=== PATIENT | male | born 1935 | race Caucasian/White ===

== ENCOUNTER 2023-08-03 08:56 | Outpatient (CLI) | payer MEDICARE, SELFPAY ==
[2023-08-03 13:41] LABS: Basophils Absolute Auto 0.1 K/mm3 (0.0-0.1); Basophils Percent Auto 0.6 % (0.2-1.2); Eosinophils Absolute Auto 0.1 K/mm3 (0-0.3); Eosinophils Percent Auto 1.8 % (0-4.4); Hematocrit 42.9 % (42.0-52.0); Hemoglobin 14.6 g/dL (14.0-18.0); Immature Granulocyte Absolute 0.02 K/mm3 (0.00-0.031); Immature Granulocyte Percent A 0.3 % (0-0.5); Lymphocytes Absolute Auto 1.21 K/mm3 (0.9-3.2); Lymphocytes Percent Auto 15.5 % (18.3-44.2); Mean Corpuscular Hemoglobin 35.3 pg (26-34); Mean Corpuscular Volume 103.6 fl (80-100); Mean Platelet Volume 10.2 fl (7.4-10.4); Monocytes Absolute Auto 1.2 K/mm3 (0.1-0.6); Monocytes Percent Auto 15.5 % (2.6-8.5); Neutrophils Absolute Auto 5.2 K/mm3 (1.3-6.7); Neutrophils Percent Auto 66.3 % (45.5-73.1); Platelet Count Result 321 k/mm3 (150-375); Red Blood Count 4.14 M/mm3 (4.6-6.20); Red Cell Distribution Width 12.9 % (11.5-14.5); White Blood Count 7.8 K/mm3 (4.5-10.0)
[2023-08-03 13:43] LABS: Appearance Urine Turbid (Clear); Bacteria Urine None Seen /hpf; Bilirubin Urine 1+ (Negative); Blood Urine Negative (Negative); Color Urine Dark Yellow (Yellow); Glucose Urine UA Negative (Negative); Ketones Urine 1+ mg/dL (Negative); Leukocyte Esterase Ur Trace LEU/UL (Negative); Nitrate Urine Negative (Negative); Non Pathogenic Casts 0-2; Protein Urine Trace mg/dL (Negative); RBC Urine 0-2 /hpf (0-2); Specific Grav Ur 1.027 (1.001-1.035); Squamous Epithelial Cell Urine None seen /hpf (Few); WBC Urine 0-5 /hpf; pH Urine 5.5 (5.0-9.0)
[2023-08-03 13:49] LABS: Add Urine Microscopic? YES
[2023-08-03 14:12] LABS: Alanine Aminotransferase 30 U/L (6-50); Albumin Level 3.9 g/dL (3.5-5.1); Alkaline Phosphatase 72 U/L (38-126); Anion Gap 8 mmol/L (8-16); Aspartate Amino Transferase 46 U/L (17-59); Bilirubin,Total 0.7 mg/dL (0.2-1.3); Blood Urea Nitrogen 13 mg/dL (9-20); Calcium 8.7 mg/dL (8.4-10.2); Carbon Dioxide 29 mmol/L (22-30); Chloride 101 mmol/L (98-107); Cholesterol 117 mg/dL (0-200); Estimated Glomerular Filt Rate > 60; Glucose 99 mg/dL (65-110); HDL Direct 46 mg/dL; Potassium 3.8 mmol/L (3.4-5.0); Sodium 138 mmol/L (137-145); Triglycerides 53 mg/dL (<150)
[2023-08-03 14:24] LABS: LDL Cholesterol Direct 61 mg/dL
== END 2023-08-03 08:57 | disposition home or self-care (01) ==
LOC: ANHGOSHLAB 08:58
PROVIDERS: PCP Internal Medicine; Visit Provider Nurse Practitioner
DX: R53.83 Other fatigue (principal); I48.91 Unspecified atrial fibrillation; I10 Essential (primary) hypertension; R11.10 Vomiting, unspecified; Z13.220 Encounter for screening for lipoid disorders
CPT/HCPCS: 36415; 80053; 80061; 81001; 84443; 85025

== ENCOUNTER 2023-09-18 15:50 | Emergency (ER) | payer MEDICARE, SELFPAY ==
[2023-09-18] VITALS (7 sets, daily range): BP systolic 135–180; BP diastolic 69–83; PULSE 86–103; RESP 14–19; TEMP 36.3; O2SAT 97–100
--- NOTE | ~2023-09-18 | CT_ITS ---
EXAMINATION: CT abdomen pelvis w con DATE: 09/18/2023 17:57 INDICATION: N/V/D x 2 weeks TECHNIQUE: Computed tomography (CT) of the abdomen and pelvis was performed with 100 mL Omnipaque-350 intravenous contrast. Automated exposure control and iterative reconstruction technique were employe d. The dose-length product was 330.41 mGy-cm. COMPARISON: None. FINDINGS: Lower thorax: Coronary artery, aortic valve, and mitral calcification. Granulomatous calcifications i n the lungs. Liver: Borderline low-density parenchyma. Granulomatous calcifications. Biliary/Gallbladder: Gallbladder is collapsed. No bile duct dilation. Pancreas: No mass or duct dilation. Spleen: Granulomatous calcifications. Adrenals:No mass. Kidneys: No suspicious mass, obstructing stone, or hydronephrosis. Simple right upper pole cyst. Mult iple right renal subcentimeter hypodensities that are too small to characterize but also likely repre sent cysts. GI tract: Small hiatal hernia. Distal esophageal and gastric wall edema. Fluid-filled colon. No small or large bowel dilation. The appendix is not confidently visualized. Diverticulosis without divertic ulitis. Mesentery/Peritoneum: Upper abdominal mesenteric stranding with fat halos surrounding multiple promin ent lymph nodes. Retroperitoneum: No mass. Atherosclerotic abdominal aortic and/or arterial calcifications. Pelvis: Normal urinary bladder. Prostatomegaly. Soft Tissues: Soft tissues and body wall unremarkable. Bones: No acute osseous finding. Severe central canal narrowing at L3-4 secondary to degenerative ch anges. IMPRESSION: Mild esophagitis/gastritis. Mesenteric panniculitis. Fluid-filled colon, as can be seen with diarrheal illness. Reviewed, dictated and finalized at location K.
[2023-09-18 16:57] LABS: Basophils Percent Auto 0.6 % (0.2-1.2); Eosinophils Absolute Auto 0.1 K/mm3 (0-0.3); Hematocrit 46.7 % (42.0-52.0); Hemoglobin 15.9 g/dL (14.0-18.0); Immature Granulocyte Absolute 0.02 K/mm3 (0.00-0.031); Immature Granulocyte Percent A 0.3 % (0-0.5); Lymphocytes Absolute Auto 1.81 K/mm3 (0.9-3.2); Lymphocytes Percent Auto 25.9 % (18.3-44.2); Mean Corpuscular Hemoglobin 33.8 pg (26-34); Mean Corpuscular Volume 99.4 fl (80-100); Mean Platelet Volume 9.6 fl (7.4-10.4); Monocytes Absolute Auto 0.8 K/mm3 (0.1-0.6); Monocytes Percent Auto 11.9 % (2.6-8.5); Neutrophils Absolute Auto 4.2 K/mm3 (1.3-6.7); Neutrophils Percent Auto 59.3 % (45.5-73.1); Platelet Count Result 284 k/mm3 (150-375); Red Cell Distribution Width 12.5 % (11.5-14.5)
[2023-09-18 17:05] LABS: INR 1.1; Prothrombin Time 14.6 Seconds (11.1-14.7)
[2023-09-18 17:06] LABS: Partial Thromboplastin Time 28.2 SECONDS (22.3-36.8)
[2023-09-18 17:07] LABS: Alanine Aminotransferase 30 U/L (6-50); Albumin Level 4.4 g/dL (3.5-5.1); Alkaline Phosphatase 63 U/L (38-126); Anion Gap 10 mmol/L (8-16); Aspartate Amino Transferase 47 U/L (17-59); Bilirubin,Total 0.9 mg/dL (0.2-1.3); Blood Urea Nitrogen 15 mg/dL (9-20); Calcium 9.1 mg/dL (8.4-10.2); Carbon Dioxide 22 mmol/L (22-30); Chloride 109 mmol/L (98-107); Estimated CRCL calculation 53 ml/min; Estimated Glomerular Filt Rate > 60; Glucose 108 mg/dL (65-110); Potassium 3.3 mmol/L (3.4-5.0); Sodium 141 mmol/L (137-145)
--- NOTE | 2023-09-18 17:48 | ED.GENADULT ---
[facility] - General Adult General Chief complaint: GI Bleed Stated complaint: blood in stool Time Seen by Provider: 09/18/23 17:00 Source: patient Mode of arrival: ambulatory Limitations: no limitations History of Present Illness HPI narrative: This is an 88-year-old male with PMH of paroxysmal AFib, GERD, HTN who presents to the ED with chief complaint of N/V/D x2 weeks and an episode of GI bleed today. Reports that he has had multiple bouts of diarrhea almost every day for the past couple of weeks. He reports today there was some bright red blood in the stools. When he had another bowel movement here in the ED he states that this bleeding had resolved. Denies melena or hematemesis. Denies fevers, chills, abdominal pain, chest pain, shortness of breath, urinary problems. Denies lightheadedness, syncope. Related Data Home Medications Medication Instructions Recorded Confirmed mv-mn-folic 200 mcg-vit K 15 cap PO 08/03/23 09/05/23 mcg-lutein 5 mg-zeaxanthin 1 mg capsule (PreserVision AREDS 2 Plus Multivit) Allergies Allergy/AdvReac Type Severity Reaction Status Date / Time No Known Allergies Allergy Verified 09/18/23 16:43 Review of Systems Review of Systems: All systems as dictated in [facility] Past Medical History Medical History Afib Dementia GERD (gastroesophageal reflux disease) Hypertension Social History Social History Smoking status: Never smoker Alcohol intake: current Alcohol use details: 3 glasses of wine Substance use type: does not use Lack of Transportation: No Lack of Food: Never True Current Housing: I Have Housing Concerned About Future Housing: No Difficulty Paying Gas/Electric Bills: No Difficulty Paying for Meds: No Currently Unemployed: No Education: High School Diploma/GED Difficulty w/ Childcare or Family Care: No Exam Narrative: GENERAL: Well-appearing, well-nourished, and in no acute distress. HEAD: Normocephalic, atraumatic. EYES: PERRLA and EOMI. ENT: Nares clear, no rhinorrhea or epistaxis. Mucous membranes moist. Oropharynx without tonsillar hypertrophy exudate or other lesions. NECK: Supple. No adenopathy or masses. CHEST: No respiratory distress. Clear to auscultation. No wheezes rales or rhonchi HEART: Regular rate and rhythm. No murmur heard. Normal peripheral pulses. ABDOMEN: Soft, nontender, nondistended, normal active bowel sounds. MSK: Normal range of motion. No edema. SKIN: Warm, dry, no rash. NEURO: Alert and oriented x3. No focal deficits. PSYCH: Normal mood and affect. Course Vital Signs Vital signs: Vital Signs Temperature 97.3 F L 09/18/23 16:07 Pulse Rate 94 09/18/23 16:07 Respiratory Rate 16 09/18/23 16:07 Blood Pressure 150/70 H 09/18/23 16:07 Pulse Oximetry 97 09/18/23 16:07 Oxygen Delivery Room Air 09/18/23 16:07 Temperature 97.3 F L 09/18/23 16:07 Pulse Rate 94 09/18/23 19:19 Respiratory Rate 19 09/18/23 19:19 Blood Pressure 135/71 09/18/23 19:19 Pulse Oximetry 98 09/18/23 19:19 Oxygen Delivery Room Air 09/18/23 16:07 Medical Decision Making MDM Narrative Medical decision making narrative: This is a 88-year-old male who presents to the ED with chief complaint of N/V/D as well as 1 episode of bright red blood in the stool. Vitals are normal. Exam is benign. No evidence of acute abdomen. Lab work shows normal CBC and CMP. Potassium very slightly low at 3.3. CT abdomen and pelvis with IV contrast: Mild esophagitis/gastritis. Mesenteric panniculitis. Fluid-filled colon as can be seen with viral illness. Patient has no recent antibiotic course or hospital stay to suggest severe diarrheal illness such as C diff. symptoms are consistent with gastroenteritis. He is currently asymptomatic and feels comfortable going home. Pt will be discharge
--- NOTE | 2023-09-18 19:10 | PC.NURSE ---
Bedside report given to Nina RN, all questions answered
== END 2023-09-18 19:21 | disposition home or self-care (01) ==
PROVIDERS: Emergency Medicine; Emergency Provider Physician Assistant; PCP Internal Medicine
DX: R19.7 Diarrhea, unspecified (principal); F03.90 Unspecified dementia, unspecified severity, without behavioral disturbance, psychotic disturbance, mood disturbance, and anxiety; I48.0 Paroxysmal atrial fibrillation; I10 Essential (primary) hypertension; K21.9 Gastro-esophageal reflux disease without esophagitis; Z79.01 Long term (current) use of anticoagulants
CPT/HCPCS: 36415; 74177; 80053; 85025; 85610; 85730; 86850; 86900; 86901; 99284; Q9967

== ENCOUNTER 2023-11-14 09:33 | Observation (INO) | payer MEDICARE, SELFPAY ==
[2023-11-14] VITALS (7 sets, daily range): BP systolic 134–152; BP diastolic 59–67; PULSE 65–98; RESP 15–20; TEMP 36.1–36.8; O2SAT 96–100
--- NOTE | ~2023-11-14 | CT_ITS ---
EXAMINATION: CT abdomen pelvis w con DATE: 11/14/2023 12:37 INDICATION: Hematemesis. TECHNIQUE: Computed tomography (CT) of the abdomen and pelvis was performed with 100 mL Omnipaque 350 intravenous contrast. Automated exposure control and iterative reconstruction technique were employe d. The dose-length product was 332.63 mGy-cm. COMPARISON: CT abdomen and pelvis 09/18/2023 FINDINGS: The visualized portions of the lung bases demonstrate minimal atelectasis. A calcified righ t lung nodules consistent with old granulomatous disease. No pleural effusion. The heart size is norm al. There are coronary artery calcifications. No pericardial effusion. There is a small sliding hiata l hernia. Calcifications in the liver and spleen are consistent with old granulomatous disease. There is diffuse hepatic steatosis. The gallbladder, pancreas, and adrenal glands are normal. There are cy sts in the kidneys measuring up to 17 mm on the right. The prostate is mildly enlarged. There is a le ft inguinal hernia containing fat. There is diverticulosis of the colon without evidence of diverticu litis. The appendix is normal. There are no pathologically enlarged lymph nodes. There is no free int raperitoneal fluid. There is chronic fat stranding in the small bowel mesentery. There is severe lumb ar spondylosis. There is moderate thoracic spondylosis. IMPRESSION: 1. Small sliding hiatal hernia. Reviewed, dictated and finalized at location A.
[2023-11-14 09:54] LABS: Basophils Percent Auto 0.4 % (0.2-1.2); Eosinophils Absolute Auto 0.1 K/mm3 (0-0.3); Eosinophils Percent Auto 1.9 % (0-4.4); Hematocrit 46.1 % (42.0-52.0); Hemoglobin 15.5 g/dL (14.0-18.0); Immature Granulocyte Absolute 0.01 K/mm3 (0.00-0.031); Immature Granulocyte Percent A 0.2 % (0-0.5); Lymphocytes Absolute Auto 1.08 K/mm3 (0.9-3.2); Lymphocytes Percent Auto 22.3 % (18.3-44.2); Mean Corpuscular HGB Conc 33.6 g/dl (32-36); Mean Corpuscular Volume 101.1 fl (80-100); Mean Platelet Volume 9.6 fl (7.4-10.4); Monocytes Absolute Auto 0.6 K/mm3 (0.1-0.6); Monocytes Percent Auto 12.4 % (2.6-8.5); Neutrophils Absolute Auto 3.1 K/mm3 (1.3-6.7); Neutrophils Percent Auto 62.8 % (45.5-73.1); Platelet Count Result 233 k/mm3 (150-375); Red Blood Count 4.56 M/mm3 (4.6-6.20); Red Cell Distribution Width 13.1 % (11.5-14.5); White Blood Count 4.9 K/mm3 (4.5-10.0)
[2023-11-14 10:05] LABS: Alanine Aminotransferase 29 U/L (6-50); Albumin Level 4.7 g/dL (3.5-5.1); Alkaline Phosphatase 78 U/L (38-126); Anion Gap 14 mmol/L (4-12); Aspartate Amino Transferase 42 U/L (17-59); Bilirubin,Total 1.2 mg/dL (0.2-1.3); Blood Urea Nitrogen 11 mg/dL (9-20); Calcium 9.3 mg/dL (8.4-10.2); Carbon Dioxide 19 mmol/L (22-30); Chloride 107 mmol/L (98-107); Estimated CRCL calculation 55 ml/min; Estimated Glomerular Filt Rate > 60; Glucose 87 mg/dL (65-110); Partial Thromboplastin Time 26.2 Seconds (22.3-36.8); Prothrombin Time 13.7 Seconds (11.1-14.7); Sodium 140 mmol/L (137-145)
--- NOTE | 2023-11-14 12:08 | ED.GENADULT ---
HPI - General Adult General Chief complaint: GI Bleed Stated complaint: vomiting blood Time Seen by Provider: 11/14/23 11:28 History of Present Illness HPI narrative: 88-year-old male present to the emergency department for evaluation hematemesis. Patient states he has had 2 days of persistent nausea and vomiting but today had an episode of hematemesis. Patient denies any associated abdominal pain. Patient states he does have history of esophageal stricture and was previously dilated in [place] where he used to live. Patient states he has had worsening issues with swallowing but describes acute worsening of nausea and vomiting over the last few days. Patient denies any dark tarry stools or blood in his stool. Related Data Home Medications Medication Instructions Recorded Confirmed apixaban 5 mg tablet (Eliquis) 2.5 mg PO BID 11/14/23 11/14/23 prednisolone sodium phosphate 1 % 1 drp EACH EYE Q12H 11/14/23 11/14/23 eye drops vitamin A-vitamin C-vit E-min 1 tablet PO DAILY 11/14/23 11/14/23 tablet Allergies Allergy/AdvReac Type Severity Reaction Status Date / Time No Known Allergies Allergy Verified 09/26/23 14:00 Review of Systems Review of Systems: All systems reviewed & are unremarkable except as noted in HPI and below PMFSH Past Medical History Medical History (Updated 11/14/23 @ 18:48 by Socorro Moralez PA-C) Chronic anticoagulation Dementia Gastroesophageal reflux disease Hypertension Paroxysmal atrial fibrillation Surgical History Surgical History (Updated 11/14/23 @ 18:47 by Socorro Moralez PA-C) History of cataract extraction History of esophageal dilatation History of tonsillectomy Family History Family History Father Acute myocardial infarction Mother Acute myocardial infarction Social History Social History (Updated 11/14/23 @ 18:47 by Socorro Moralez PA-C) Social History: Surrogate medical decision maker: Randall Mclean, son. Code status: Full code. Smoking status: Never smoker Second hand tobacco smoke exposure: No Alcohol intake: current Drinks per week: 2 Alcohol use details: 3 glasses of wine Substance use: never Substance use type: does not use Do You Feel Safe in your Home?: Yes Lack of Transportation: No Lack of Food: Never True Current Housing: I Have Housing Concerned About Future Housing: No Difficulty Paying Gas/Electric Bills: No Difficulty Paying for Meds: No Currently Unemployed: No Education: High School Diploma/GED Difficulty w/ Childcare or Family Care: No Spiritual care concerns: No Exam Narrative: APPEARANCE: Well appearing, no pain, no distress, well-nourished. HEAD: normocephalic, atraumatic. EYES: PERRLA/EOMI, conjunctivae clear. NOSE: Normal no drainage EARS:TMS clear with good light reflex. THROAT: Pharynx clear, no exudate. NECK: Supple. No adenopathy, no masses. RESPIRATORY: Airway patent, respirations nonlabored. Clear to auscultation bilaterally, no rales, rhonchi, wheezing. CARDIOVASCULAR: Regular rate and rhythm without murmurs rubs or gallops. ABDOMINAL: Soft, nontender, nondistended, normal bowel sounds MUSCULOSKELETAL: Moves all extremities. Strength/ROM intact, No edema, No calf tenderness. NEURO: Alert. Cranial nerves II through XII intact. Grossly intact SKIN: Warm, dry. Normal Color Rectal exam: Hemoccult negative on digital rectal exam, no stool in the rectal vault Course Course Emergency Course: Patient was admitted to the hospitalist and GI was consulted. Vital Signs Vital signs: Vital Signs Temperature 97.0 F L 11/14/23 09:36 Pulse Rate 98 11/14/23 09:36 Respiratory Rate 18 11/14/23 09:36 Blood Pressure 151/67 H 11/14/23 09:36 Pulse Oximetry 96 11/14/23 09:36 Oxygen Delivery Room Air 11/14/23 09:36 Temperature 97.0 F L 11/14/23 09:36 Pulse Rate 85 11/14/23 16:07 Respirato
[2023-11-14] MEDS: PANTOPRAZOLE SODIUM IV 40 MG VIAL IV PUSH (12:18)
[2023-11-14] MEDS: PANTOPRAZOLE SODIUM IV 80 MG in SODIUM CHLORIDE 0.9% IV 500 ML 50 MG IV CONT (12:37)
--- NOTE | 2023-11-14 14:45 | ADMGEN ---
This patient, Kobe Mclean, was admitted to Medical Room 244-. Patient/family oriented to hospital policies and general routines including ID bracelet, bed and alarms, visiting hours, pain management, procedures, bathroom and other care routines, personal items, smoking policy, room service/diet, and visiting hours. Information on how to activate the Rapid Response Team has been discussed. Patient/Family are encouraged to report perceived risks to care and to ask questions if they do not understand what they are told or what they should do.
--- NOTE | 2023-11-14 18:40 | PM.IMHP ---
H&P: HPI History of Present Illness Date/Time: 11/14/23 19:00 Chief Complaint: Difficulty swallowing and blood in vomit. Narrative: This is a very pleasant 88-year-old male with history of esophageal stricture requiring dilatation, gastroesophageal reflux disease, paroxysmal atrial fibrillation on chronic anticoagulation, and hypertension who presented to the emergency department via private vehicle for evaluation of difficulty swallowing and blood in vomit. The patient provides the following history. Over the last week or so he started having issues with swallowing liquids and solids similar to when he required esophageal dilation previously. This morning he had coffee and a couple of yogurt for breakfast and not long thereafter he vomited up when he had just eaten. He apparently told his that he had blood in the vomitus however he does not seem to remember that and denies that at this time. expresses concern that he has lost approximately 10 to 12 lb in less than a year's time. He tells me he just does not eat as much as he used to. He denies epigastric and abdominal pain, bloating, belching, indigestion, melena, and hematochezia. He also denies choking and concerns for aspiration. No significant alcohol or caffeine use and he denies NSAID use. In the ED: Vital signs were stable on arrival. Labs were significant for a WBC count of 4.9, hemoglobin 15.5, BUN 11, creatinine 0.80, INR 1.0. CT of the abdomen and pelvis showed a small sliding hiatal hernia. He received 40 mg IV pantoprazole and is being admitted in this setting for further monitoring and GI consultation. Review of Systems Review of Systems: 12 systems were reviewed and are negative except for as per HPI. [facility] Past Medical History Medical History (Updated 11/14/23 @ 18:48 by Socorro Moralez PA-C) Chronic anticoagulation Dementia Gastroesophageal reflux disease Hypertension Paroxysmal atrial fibrillation Surgical History Surgical History (Updated 11/14/23 @ 18:47 by Socorro Moralez PA-C) History of cataract extraction History of esophageal dilatation History of tonsillectomy Family History Family History Father Acute myocardial infarction Mother Acute myocardial infarction Social History Social History (Updated 11/14/23 @ 18:47 by Socorro Moralez PA-C) Social History: Surrogate medical decision maker: Randall Mclean, son. Code status: Full code. Smoking status: Never smoker Second hand tobacco smoke exposure: No Alcohol intake: current Drinks per week: 2 Alcohol use details: 3 glasses of wine Substance use: never Substance use type: does not use Do You Feel Safe in your Home?: Yes Lack of Transportation: No Lack of Food: Never True Current Housing: I Have Housing Concerned About Future Housing: No Difficulty Paying Gas/Electric Bills: No Difficulty Paying for Meds: No Currently Unemployed: No Education: High School Diploma/GED Difficulty w/ Childcare or Family Care: No Spiritual care concerns: No Meds Home Medications and Allergies Home Medications Medication Instructions Recorded Confirmed Type amlodipine 2.5 mg tablet 2.5 mg PO BID #180 tabs 04/10/23 11/14/23 Rx atenolol 50 mg tablet 50 mg PO DAILY #90 tabs 06/26/23 11/14/23 Rx apixaban 5 mg tablet (Eliquis) 2.5 mg PO BID 11/14/23 11/14/23 History prednisolone sodium phosphate 1 % 1 drp EACH EYE Q12H 11/14/23 11/14/23 History eye drops vitamin A-vitamin C-vit E-min 1 tablet PO DAILY 11/14/23 11/14/23 History tablet Allergies Allergy/AdvReac Type Severity Reaction Status Date / Time No Known Allergies Allergy Verified 09/26/23 14:00 Vital Signs Vital Signs - 24 hr 11/14/23 09:36 11/14/23 11:10 11/14/23 12:40 Temperature 97.0 F L Pulse Rate 98 80 84 Respiratory Rate 18 18 16 Blood Pressure 151/67 H 149/67 H 135/64 Pulse Oximetry 96 100 99
[2023-11-14] MEDS: amLODIPine BESYLATE 2.5 MG TABLET PO (20:11)
[2023-11-14] MEDS: prednisoLONE ACETATE 1% OPHTH 5 ML 1 DROP EACH EYE (20:12)
[2023-11-14 21:23] LABS: Hematocrit 41.4 % (42.0-52.0); Hemoglobin 14.4 g/dL (14.0-18.0)
[2023-11-15] VITALS (7 sets, daily range): BP systolic 127–149; BP diastolic 57–76; PULSE 67–95; RESP 17–21; TEMP 36.4–36.8; O2SAT 70–100; BMI 20.5
[2023-11-15 05:18] LABS: Hematocrit 42.1 % (42.0-52.0); Hemoglobin 14.1 g/dL (14.0-18.0); Mean Corpuscular HGB Conc 33.5 g/dl (32-36); Mean Corpuscular Hemoglobin 34.1 pg (26-34); Mean Corpuscular Volume 101.9 fl (80-100); Mean Platelet Volume 9.5 fl (7.4-10.4); Platelet Count Result 194 k/mm3 (150-375); Red Blood Count 4.13 M/mm3 (4.6-6.20); Red Cell Distribution Width 12.9 % (11.5-14.5)
[2023-11-15 05:38] LABS: Anion Gap 10 mmol/L (4-12); Blood Urea Nitrogen 10 mg/dL (9-20); Calcium 8.9 mg/dL (8.4-10.2); Carbon Dioxide 23 mmol/L (22-30); Chloride 106 mmol/L (98-107); Estimated CRCL calculation 49 ml/min; Estimated Glomerular Filt Rate > 60; Glucose 73 mg/dL (65-110); Magnesium 2.1 mg/dL (1.6-2.3); Potassium 4.1 mmol/L (3.4-5.0); Sodium 139 mmol/L (137-145)
[2023-11-15] MEDS: prednisoLONE ACETATE 1% OPHTH 5 ML 1 DROP EACH EYE (08:16)
[2023-11-15] MEDS: PANTOPRAZOLE SODIUM IV 40 MG VIAL IV PUSH (08:16)
--- NOTE | 2023-11-15 09:53 | PHAR ---
Pharmacy verified home med: * Use from home * Prednisolone Sod Phos/Moxifloxacin/Bromfenac 1/0.5/0.075% Opth Soln instill 1 drop in each eye every 12 hours
--- NOTE | 2023-11-15 13:10 | PC.NURSE ---
To GI Lab via wheelchair, IV R forearm saline locked. Report given to Hipolito LAURA.
[2023-11-15] MEDS: LACTATED RINGERS 1,000 ML 150 ML IV CONT (13:25)
--- NOTE | 2023-11-15 14:02 | WPDANESEPPF ---
Anes - Initial Pre Proc Eval Procedure: Operation Date: 11/15/23 14:30 Proposed Procedures p Esophagogastroduodenoscopy - Amador Soto MD Date/Time: 11/15/23 14:02 Surgeon: Baljeet Juarez MD Pre Op Diagnosis: Nausea/Vomiting/Hematemesis Patient Data Age: 88 Gender: M Height: 1.8 m Weight: 66.8 kg Last Vital Signs Temp 97.5 F L 11/15/23 13:19 Pulse 81 11/15/23 13:19 Resp 20 11/15/23 13:19 BP 149/67 H 11/15/23 13:19 Pulse Ox 94 11/15/23 13:19 O2 Del Method Room Air 11/15/23 13:19 Allergies Allergy/AdvReac Type Severity Reaction Status Date / Time No Known Allergies Allergy Verified 11/15/23 13:17 Home Medications Medication Instructions Recorded Confirmed Type amlodipine 2.5 mg tablet 2.5 mg PO BID #180 tabs 04/10/23 11/14/23 Rx atenolol 50 mg tablet 50 mg PO DAILY #90 tabs 06/26/23 11/14/23 Rx apixaban 5 mg tablet (Eliquis) 2.5 mg PO BID 11/14/23 11/14/23 History prednisolone sodium phosphate 1 % 1 drp EACH EYE Q12H 11/14/23 11/14/23 History eye drops vitamin A-vitamin C-vit E-min 1 tablet PO DAILY 11/14/23 11/14/23 History tablet Laboratory Tests 11/14/23 11/15/23 21:04 04:44 WBC 5.0 K/mm3 (4.5-10.0) RBC 4.13 L M/mm3 (4.6-6.20) Hgb 14.4 g/dL 14.1 g/dL (14.0-18.0) (14.0-18.0) Hct 41.4 L % 42.1 % (42.0-52.0) (42.0-52.0) MCV 101.9 H fl (80-100) MCH 34.1 H pg (26-34) MCHC 33.5 g/dl (32-36) RDW 12.9 % (11.5-14.5) Plt Count 194 k/mm3 (150-375) MPV 9.5 fl (7.4-10.4) Sodium 139 mmol/L (137-145) Potassium 4.1 mmol/L (3.4-5.0) Chloride 106 mmol/L (98-107) Carbon Dioxide 23 mmol/L (22-30) Anion Gap 10 mmol/L (4-12) BUN 10 mg/dL (9-20) Creatinine 0.90 mg/dL (0.7-1.3) Estim Creat Clear Calc 49 ml/min Estimated GFR > 60 (59 - ) Glucose 73 mg/dL (65-110) Calcium 8.9 mg/dL (8.4-10.2) Magnesium 2.1 mg/dL (1.6-2.3) Patient hx anesthesia problems: none Family hx anesthesia problems: none Results Review: All pre-operative results and documents have been reviewed as part of the pre-operative evaluation. PENDING SALE TO [facility] Past Medical History Medical History (Updated 11/14/23 @ 18:48 by Socorro Moralez PA-C) Chronic anticoagulation Dementia Gastroesophageal reflux disease Hypertension Paroxysmal atrial fibrillation Surgical History Surgical History (Updated 11/14/23 @ 18:47 by Socorro Moralez PA-C) History of cataract extraction History of esophageal dilatation History of tonsillectomy Family History Family History Father Acute myocardial infarction Mother Acute myocardial infarction Social History Social History (Updated 11/14/23 @ 18:47 by Socorro Moralez PA-C) Social History: Surrogate medical decision maker: Randall Mclean, zuleyka. Code status: Full code. Smoking status: Never smoker Second hand tobacco smoke exposure: No Alcohol intake: current Drinks per week: 2 Alcohol use details: 3 glasses of wine Substance use: never Substance use type: does not use Do You Feel Safe in your Home?: Yes Lack of Transportation: No Lack of Food: Never True Current Housing: I Have Housing Concerned About Future Housing: No Difficulty Paying Gas/Electric Bills: No Difficulty Paying for Meds: No Currently Unemployed: No Education: High School Diploma/GED Difficulty w/ Childcare or Family Care: No Spiritual care concerns: No Anes - Eval Final PreProcedure Day of Procedure 11/15/23 14:02 Patient weight: normal Heart: regular rate and rhythm Lungs: clear to auscultation Airway: Mallampati scale Neurological: alert and oriented Last oral intake: >/= 8 hours ASA classification: III Emergent: no Anesthetic plan: proceed Anesthesia type and monit
--- NOTE | 2023-11-15 14:04 | WPDGICN ---
Assessment and Plan Assessment and plan (1) Dysphagia: Code(s): R13.10 - Dysphagia, unspecified Status: Acute Assessment and Plan: will proceed with urgent EGD given presentation of worsening dysphagia, also patient says that had blood in emesis hold eliquis in preparation for egd will assess if needs dilatation (2) Hematemesis: Code(s): K92.0 - Hematemesis Status: Acute Assessment and Plan: egd iv protonix ? esophagitis, ulcer, etc more recommendations after egd (3) Nausea & vomiting: Code(s): R11.2 - Nausea with vomiting, unspecified Status: Acute (4) Gastroesophageal reflux disease: Code(s): K21.9 - Gastro-esophageal reflux disease without esophagitis Status: Acute (5) Paroxysmal atrial fibrillation: Code(s): I48.0 - Paroxysmal atrial fibrillation Status: Acute (6) Chronic anticoagulation: Code(s): Z79.01 - buttermaker continuous churn (current) use of anticoagulants Status: Acute Assessment and Plan: on hold for now (7) Weight loss: Code(s): R63.4 - Abnormal weight loss Status: Acute GI Consult Note Consult date/time: 11/15/23 14:04 Reason for consult: hematemesis, dysphagia HPI: Kobe Mclean is a 88 year old male with history of esophageal stricture requiring dilatation last EGD about 10 years ago, gastroesophageal reflux disease, paroxysmal atrial fibrillation on chronic anticoagulation with eliquis, and hypertension who presented to the emergency department via private vehicle for evaluation of difficulty swallowing and hematemesis. He has been dealing with discomfort after swallowing for several months but last week worsened, then noted one episode of blood in emesis, also noted that he has lost approximately 10 to 12 lb in less than a year's time. He denies NSAID use. ER evaluation showed WBC count of 4.9, hemoglobin 15.5, BUN 11, creatinine 0.80, INR 1.0. CT of the abdomen and pelvis showed a small sliding hiatal hernia. Review of Systems Constitutional: Constitutional: Denies headache(s) and Denies weakness Eyes: Eyes: Denies blurry vision ENT: Reports Normal hearing present, Denies headache(s) and Denies neck pain Cardiovascular: Cardiovascular: Denies chest pain and Denies dyspnea Respiratory: Respiratory: Denies cough Gastrointestinal: Gastrointestinal: Reports heartburn and Reports hematemesis Genitourinary: Genitourinary: Denies dysuria Musculoskeletal: Musculoskeletal: Denies neck pain Integumentary/Breasts: Skin/Breast: Denies dry skin Neurologic: Reports Normal hearing present, Denies headache(s) and Denies weakness Psychiatric: Psychiatric: Denies anxiety Endocrine: Endocrine: Denies change in body appearance Hematologic/Lymphatic: Hematologic/Lymphatic: Denies easy bleeding Allergic/Immunologic: Allergic/Immunologic: Denies urticaria PMFSH Past Medical History Medical History (Updated 11/15/23 @ 14:09 by Amador Soto MD) Chronic anticoagulation Dementia Gastroesophageal reflux disease Hypertension Paroxysmal atrial fibrillation Weight loss Surgical History Surgical History (Updated 11/14/23 @ 18:47 by Socorro Moralez PA-C) History of cataract extraction History of esophageal dilatation History of tonsillectomy Family History Family History Father Acute myocardial infarction Mother Acute myocardial infarction Social History Social History (Updated 11/14/23 @ 18:47 by Socorro Moralez PA-C) Social History: Surrogate medical decision maker: Randall Mclean, son. Code status: Full code. Smoking status: Never smoker Second hand tobacco smoke exposure: No Alcohol intake: current Drinks per week: 2 Alcohol use details: 3 glasses of wine Substance use: never Substance use type: does not use Do You Feel Safe in your Home?: Yes Lack of Transportation: No [place]
--- NOTE | 2023-11-15 15:46 | PM.DS ---
DS: Admitting Diagnosis Discharge Date 11/15/23 Admitting Diagnosis hematemesis DS: Discharge Diagnosis Discharge Diagnosis (1) Dysphagia: Code(s): R13.10 - Dysphagia, unspecified Status: Acute (2) Hematemesis: Code(s): K92.0 - Hematemesis Status: Acute (3) Paroxysmal atrial fibrillation: Code(s): I48.0 - Paroxysmal atrial fibrillation Status: Acute (4) Chronic anticoagulation: Code(s): Z79.01 - MCFP (current) use of anticoagulants Status: Acute (5) Gastroesophageal reflux disease: Code(s): K21.9 - Gastro-esophageal reflux disease without esophagitis Status: Acute (6) Hypertension: Qualifiers: Hypertension type: primary hypertension Qualified Code(s): I10 - Essential (primary) hypertension Code(s): I10 - Essential (primary) hypertension Status: Acute DS: Summary Hospital Course Hospital Course: This is a very pleasant 88-year-old male with history of esophageal stricture requiring dilatation, gastroesophageal reflux disease, paroxysmal atrial fibrillation on chronic anticoagulation, and hypertension who presented to the emergency department via private vehicle for evaluation of difficulty swallowing and blood in vomit. Over the last week or so he started having issues with swallowing liquids and solids similar to when he required esophageal dilation previously. This morning he had coffee and a couple of yogurt for breakfast and not long thereafter he vomited up when he had just eaten. He apparently told his that he had blood in the vomitus however he does not seem to remember that and denies that at this time. expresses concern that he has lost approximately 10 to 12 lb in less than a year's time. In the ED: Vital signs were stable on arrival. Labs were significant for a WBC count of 4.9, hemoglobin 15.5, BUN 11, creatinine 0.80, INR 1.0. CT of the abdomen and pelvis showed a small sliding hiatal hernia. He received 40 mg IV pantoprazole and GI consultation.Patient underwent EGD on 11/15/2023 where he was discovered to have a Jesi-Barnhart tear, esophagitis, hiatal hernia and an esophageal ring. Is advised that he start on Protonix twice a day as well as Carafate with meals. Avoid NSAIDs. Hold Eliquis for 5 days and repeat EGD in 4 weeks to reassess. He will be discharged home on these medications. He is no longer experiencing any nausea or vomiting. Time Spent with Patient Time attestation: Total time spent providing and/or coordinating discharge services: Exam Narrative: GENERAL: Comfortable, no acute distress HENMT: moist mucous membranes EYES: EOM intact b/l NECK: no lymphadenopathy RESPIRATORY: clear to auscultation, no increased respiratory effort CARDIO: Regular rate and rhythm GI: soft, nontender, bowel sounds present SKIN/EXTREMITIES: no rashes, no edema, no redness or tenderness NEURO: PROM intact, answers questions appropriately, A&O x4 DS: Data Data Completed and Pending Pending studies at discharge: Pending at discharge 11/15/23 14:41 Surgical [PTH] Routine Labs on day of discharge: Labs from last 24 hours 11/15/23 11/14/23 04:44 21:04 WBC 5.0 RBC 4.13 L Hgb 14.1 14.4 Hct 42.1 41.4 L MCV 101.9 H MCH 34.1 H MCHC 33.5 RDW 12.9 Plt Count 194 MPV 9.5 Sodium 139 Potassium 4.1 Chloride 106 Carbon Dioxide 23 Anion Gap 10 BUN 10 Creatinine 0.90 Estim Creat Clear Calc 49 Estimated GFR > 60 Glucose 73 Calcium 8.9 Magnesium 2.1 Discharge Plan Discharge Consulting providers: Amador Soto Discharging Clinician: Darleen Souza Patient Disposition: Home, Self-Care Activity: no preference Diet: heart healthy Discharge Instructions: GI RECOMMENDATIONS The office will call you with results. If you Haven't heard from us within [address] Soto office. Okay to resume diet Continu
--- NOTE | 2023-11-16 12:34 | WPDANESPN ---
Anes - Prog Note Post-Op Date/Time: 11/16/23 12:34 Cardiovascular status: normal Respiratory status: normal Airway patency: baseline Mental status: baseline Post-Op hydration status: normal Vital Signs: Last Vital Signs Temp 97.5 F L 11/15/23 14:00 Pulse 77 11/15/23 15:03 Resp 20 11/15/23 15:03 BP 138/62 11/15/23 15:03 Pulse Ox 96 11/15/23 15:03 O2 Del Method Room Air 11/15/23 15:03 Pain Score (VAS): 0/10 Laboratory Tests 11/15/23 04:44 11/15/23 04:44 Post-procedural complaints: none Patient Feedback: Patient satisfied with anesthetic care.
== END 2023-11-15 16:23 | disposition home or self-care (01) ==
LOC: ANHED 13:30 → ANH2MED 14:19
PROVIDERS: Internal Medicine Gastroenterology; Physician Assistant; Admitting Provider Emergency Medicine; Emergency Provider Emergency Medicine; PCP Nurse Practitioner; Visit Provider Internal Medicine
PROC: 0DJ08ZZ Inspection of Upper Intestinal Tract, Via Natural or Artificial Opening Endoscopic (ICD-10-PCS; CPT 43235; principal; 2023-11-15 14:30)
DX: K22.6 Gastro-esophageal laceration-hemorrhage syndrome (principal); K29.50 Unspecified chronic gastritis without bleeding; K22.10 Ulcer of esophagus without bleeding; K21.00 Gastro-esophageal reflux disease with esophagitis, without bleeding; K22.2 Esophageal obstruction; K44.9 Diaphragmatic hernia without obstruction or gangrene; I48.0 Paroxysmal atrial fibrillation; I10 Essential (primary) hypertension; F03.90 Unspecified dementia, unspecified severity, without behavioral disturbance, psychotic disturbance, mood disturbance, and anxiety; K21.9 Gastro-esophageal reflux disease without esophagitis; Z79.01 Long term (current) use of anticoagulants
CPT/HCPCS: 43239; 36415; 74177; 80048; 80053; 83735; 85014; 85018; 85025; 85027; 85610; 85730; 86850; 86900; 86901; 88305; 88312; 88342; 96374; 96375; 99285; A9270; C9113; G0378; J2704; J7040; J7120; Q9967

== ENCOUNTER 2023-12-20 00:26 | Day surgery (SDC) | payer MEDICARE, SELFPAY ==
[2023-12-07 16:16] VITALS: BMI 20.7
--- NOTE | 2023-12-07 16:30 | PC.NURSE ---
Spoke with PATIENTS TABATHA regarding medication ELIQUIS. Pt. verbalizes understanding that the last dose of ELIQUIS is to be taken on 12/17/2023 and the Endoscopist will instruct them when to restart after the procedure.
[2023-12-20 07:45] VITALS: BP 150/60; PULSE 61; RESP 18; TEMP 36; O2SAT 99
[2023-12-20] MEDS: LACTATED RINGERS 1,000 ML 150 ML IV CONT (07:52)
--- NOTE | 2023-12-20 08:35 | WPDANESEPPF ---
Anes - Initial Pre Proc Eval Procedure: Operation Date: 12/20/23 09:00 Proposed Procedures p Esophagogastroduodenoscopy - Amador Soto MD Date/Time: 12/20/23 08:35 Surgeon: Amador Soto MD Pre Op Diagnosis: Esophageal obstruction, Diaphragmatic hernia Patient Data Age: 88 Gender: M Height: 1.8 m Weight: 68.7 kg Last Vital Signs Temp 96.8 F L 12/20/23 07:45 Pulse 61 12/20/23 07:45 Resp 18 12/20/23 07:45 BP 150/60 H 12/20/23 07:45 Pulse Ox 99 12/20/23 07:45 O2 Del Method Room Air 12/20/23 07:45 Allergies Allergy/AdvReac Type Severity Reaction Status Date / Time No Known Allergies Allergy Verified 12/20/23 07:43 Home Medications Medication Instructions Recorded Confirmed Type amlodipine 2.5 mg tablet 2.5 mg PO BID #180 tabs 04/10/23 12/20/23 Rx atenolol 50 mg tablet 50 mg PO DAILY #90 tabs 06/26/23 12/20/23 Rx apixaban 5 mg tablet (Eliquis) 2.5 mg PO BID 11/14/23 12/20/23 History prednisolone sodium phosphate 1 % 1 drp EACH EYE Q12H 11/14/23 12/20/23 History eye drops vitamin A-vitamin C-vit E-min 1 tablet PO DAILY 11/14/23 12/20/23 History tablet sucralfate 1 gram tablet 1 g PO TID #90 tabs 11/15/23 12/20/23 Rx pantoprazole 40 mg tablet,delayed 40 mg PO BID #60 tabs 12/11/23 12/20/23 Rx release Patient hx anesthesia problems: none Family hx anesthesia problems: none Results Review: All pre-operative results and documents have been reviewed as part of the pre-operative evaluation. [facility] Past Medical History Medical History Chronic anticoagulation Dementia Gastroesophageal reflux disease Hypertension Paroxysmal atrial fibrillation Weight loss Surgical History Surgical History History of cataract extraction History of esophageal dilatation History of tonsillectomy Family History Family History Father Acute myocardial infarction Mother Acute myocardial infarction Social History Social History Social History: Surrogate medical decision maker: Randall Mclean, son. Code status: Full code. Smoking status: Never smoker Second hand tobacco smoke exposure: No Alcohol intake: current Drinks per week: 2 Alcohol use details: 3 glasses of wine Substance use: never Substance use type: does not use Do You Feel Safe in your Home?: Yes Lack of Transportation: No Lack of Food: Never True Current Housing: I Have Housing Concerned About Future Housing: No Difficulty Paying Gas/Electric Bills: No Difficulty Paying for Meds: No Currently Unemployed: No Education: High School Diploma/GED Difficulty w/ Childcare or Family Care: No Living arrangements: with family Spiritual care concerns: No Anes - Eval Final PreProcedure Day of Procedure 12/20/23 08:35 Patient weight: normal Heart: regular rate and rhythm Lungs: clear to auscultation Airway: Mallampati scale class II Neurological: alert and oriented Last oral intake: >/= 8 hours ASA classification: III Emergent: no Anesthetic plan: proceed Anesthesia type and monitoring: general GIVS and standard monitoring Results Review: All pre-operative results and documents have been reviewed as part of the pre-operative evaluation. Informed Consent: The patient's anesthetic plan and its attendant risks and benefits were discussed with the patient/family/POA. Questions were solicited and answers provided to the satisfaction of the patient/family/POA.
--- NOTE | 2023-12-20 08:49 | PM.HPGS ---
History of Present Illness History of Present Illness Consent: Risks, benefits, and alternatives have been discussed and questions answered. Patient agrees to proceed with procedure. Chief complaint: Esophageal obstruction, Diaphragmatic hernia Narrative: Kobe Mclean is a 88 year old male with dysphagia, esophagitis and MWT last month, did not dilate because of tear but has been doing much better with ppi (about to run out of prescription). Review of Systems Review of Systems: All systems reviewed & are unremarkable except as noted in HPI and below PMFSH Past Medical History Medical History Chronic anticoagulation Dementia Gastroesophageal reflux disease Hypertension Paroxysmal atrial fibrillation Weight loss Surgical History Surgical History History of cataract extraction History of esophageal dilatation History of tonsillectomy Family History Family History Father Acute myocardial infarction Mother Acute myocardial infarction Social History Social History Social History: Surrogate medical decision maker: Randall Mclean, son. Code status: Full code. Smoking status: Never smoker Second hand tobacco smoke exposure: No Alcohol intake: current Drinks per week: 2 Alcohol use details: 3 glasses of wine Substance use: never Substance use type: does not use Do You Feel Safe in your Home?: Yes Lack of Transportation: No Lack of Food: Never True Current Housing: I Have Housing Concerned About Future Housing: No Difficulty Paying Gas/Electric Bills: No Difficulty Paying for Meds: No Currently Unemployed: No Education: High School Diploma/GED Difficulty w/ Childcare or Family Care: No Living arrangements: with family Spiritual care concerns: No Meds Home Medications and Allergies Home Medications Medication Instructions Recorded Confirmed Type amlodipine 2.5 mg tablet 2.5 mg PO BID #180 tabs 04/10/23 12/20/23 Rx atenolol 50 mg tablet 50 mg PO DAILY #90 tabs 06/26/23 12/20/23 Rx apixaban 5 mg tablet (Eliquis) 2.5 mg PO BID 11/14/23 12/20/23 History prednisolone sodium phosphate 1 % 1 drp EACH EYE Q12H 11/14/23 12/20/23 History eye drops vitamin A-vitamin C-vit E-min 1 tablet PO DAILY 11/14/23 12/20/23 History tablet sucralfate 1 gram tablet 1 g PO TID #90 tabs 11/15/23 12/20/23 Rx pantoprazole 40 mg tablet,delayed 40 mg PO BID #60 tabs 12/11/23 12/20/23 Rx release Allergies Allergy/AdvReac Type Severity Reaction Status Date / Time No Known Allergies Allergy Verified 12/20/23 07:43 Vital Signs Vital Signs - 24 hr 12/20/23 07:45 Temperature 96.8 F L Pulse Rate 61 Respiratory Rate 18 Blood Pressure 150/60 H Pulse Oximetry 99 Oxygen Delivery Room Air Exam Const: General: comfortable and no acute distress HENMT: Face/Nose/Sinus: Normal nares present Eyes: General: appearance normal, both eyes and all related structures Neck: Neck: no JVD Resp: Auscultation: clear to auscultation bilaterally Cardio: Rate: regular rate Rhythm: regular rhythm GI: Inspection: non-distended GI Palp: Yes Soft to palpation Skin: General skin exam: normal color Neuro: General: gait normal Speech: normal speech Extrem: General: normal to inspection Psych: Mental Status: mental status grossly normal Assessment and Plan Assessment and plan (1) Dysphagia: Code(s): R13.10 - Dysphagia, unspecified Status: Acute Assessment and Plan: better with ppi egd to assess if needs dilatation (2) Gastroesophageal reflux disease: Qualifiers: Esophagitis presence: with esophagitis Esophagitis bleeding: without hemorrhage Qualified Code(s): K21.00 - Gastro-esophageal reflux disease with esoph
[2023-12-20 09:08] VITALS: BP 128/70; PULSE 71; RESP 17; O2SAT 97
[2023-12-20 09:18] VITALS: BP 121/61; PULSE 67; RESP 16; O2SAT 98
[2023-12-20 09:28] VITALS: BP 124/58; PULSE 68; RESP 15; O2SAT 100
== END 2023-12-20 09:35 | disposition home or self-care (01) ==
PROVIDERS: PCP Nurse Practitioner; Visit Provider Internal Medicine Gastroenterology
PROC: 0DJ08ZZ Inspection of Upper Intestinal Tract, Via Natural or Artificial Opening Endoscopic (ICD-10-PCS; CPT 43235; principal; 2023-12-20 09:00)
DX: K22.2 Esophageal obstruction (principal); K21.00 Gastro-esophageal reflux disease with esophagitis, without bleeding; I48.0 Paroxysmal atrial fibrillation; F03.90 Unspecified dementia, unspecified severity, without behavioral disturbance, psychotic disturbance, mood disturbance, and anxiety; I10 Essential (primary) hypertension; Z79.01 Long term (current) use of anticoagulants
CPT/HCPCS: 43249; 88305; C1726; J2001; J2704; J7120

== ENCOUNTER 2024-12-16 11:14 | Outpatient (CLI) | payer MEDICARE, SELFPAY ==
--- OUTSIDE RECORDS SUMMARY | 2024-12-16 12:52 | XMS_ITS | Continuity of Care Document ---
Author Organization [facility] Address [address] [place] [address] Phone Care Team Providers Care Disposition Clerk Name Role Phone Isael Gongora Unavailable Unavailable Procedures Procedure Date Eye Exam & Treatment Dilated Macular Exam Performed 08 Advance Directives Directive Yes / No Effective Date File Name No Information Encounters Encounter Description Practice Location Reason(s) For Visit Diagnoses Date Provider Providers Copied on Encounter [facility], [address], [place], [place], [id number], [place] tel:[phone] [facility] No Information [address] [place] , [address], [place], [address], [place]. tel:[phone] Family History Family Member Type Diagnosis Age At Onset No Information Payers Payer name Insurance type Covered green party ID Authoriza tion(s) Medicare [facility] [id number] [facility] Medicare Supp [place] [id number] Social History Type Description Quantity Date Captured Comments Sex Male Smoking Status No Information Chief Complaint And Reason For Visit No Information Reason For Referral Reason For Referral No Information History Of Present Illness Encounter Date Complaint History Of Prese nt Illness No Information Functional Status Date Functional Assessmen t No Information Instructions Date Instruction Additional Infor mation No Information Assessments Type Assessment Date No Information Patient Care Teams Name Effective Dates (start - stop) Status Members No Information
--- OUTSIDE RECORDS SUMMARY | 2024-12-16 12:52 | XMS_ITS | Clinical Summary ---
Author Organization [facility] Address [address] [place] [address] Care Team Providers Care Airplane Tube Builder Name Role Phone José Miguel Fan MD Primary Care Provider [phone] Source Comments [facility],non-owned Affiliates and Associated Physician Practices is amultiple site organization consisting of ambulatory clinics and hospital sitesin [place], [place], [place] and [place]. This disclosure is being madepursuant to the Care Everywhere program and may not contain all information available regarding this patient. Last updated 18.[facility] Allergies No known active allergies Medications * Be aware that medications may not be up to date on this document. Alwaysverify current medications with the patient. atenolol (TENORMIN) 25 MG tablet Take 25 mg by mouth daily. Active amLODIPine (NORVASC) 2.5 MG tablet Take 2.5 mg by mouth once daily. Active Social History Tobacco Use Types Packs/Day Years Used Date Smoking Tobacco: Never Alcohol Use Standard Drinks/Week Comments Yes 6.7 (1 standard drink = 0.6 oz p ure alcohol) occas. wine Sex and Gender Information Value Date Recorded Sex Assigned at Not on file Legal Sex Male 6:06 AM RN IMMUNOLOGY Gender Identity Not on file Sexual Orientation Not on file Last Filed Vital Signs Vital Sign Reading Time Taken Comments Blood Pressure 129/80 06/10/2013 8:20 AM RN IMMUNOLOGY Pulse 72 06/10/2013 8:20 AM RN IMMUNOLOGY Temperature 36.2 C (97.2 F) 06/10/2013 8:10 AM RN IMMUNOLOGY Respiratory Rate 20 06/10/2013 8:20 AM RN IMMUNOLOGY Oxygen Saturation 100% 06/10/2013 8:20 AM RN IMMUNOLOGY Inhaled Oxygen Concentration - - Weight 70.3 kg (155 lb) 06/07/2013 11:45 AM RN IMMUNOLOGY Height 177.8 cm (5' 10) 06/07/2013 11:45 AM RN IMMUNOLOGY Body Mass Index 22.24 06/07/2013 11:45 AM RN IMMUNOLOGY Plan of Treatment Health Maintenance Due Date Last Done Comments DTAP/TDAP/TD VACCINES (1 - Tdap) 01/10/1954 PNEUMOCOCCAL VACCINE 50+ (1 of 1 - PCV) 1987 ZOSTER VACCINE (1 of 2) 1987 Respiratory Syncytial Virus (RSV) Vaccine Pt: or over 60 yrs (1 - 1-dose 75+ series) 01/10/2012 COVID-19 VACCINE ( - 2023-2 5 season) 2024 DEPRESSION SCREENING 07/10/2024 MEDICARE AWV CALENDAR YEAR 2024 INFLUENZA VACCINE (Season Ended) 2025 HEPATITIS B VACCINE Aged Out No longe r eligible based on patient's age to complete this topic HIB VACCINE Aged Out No longer eligi ble based on patient's age to complete this topic HPV VACCINE Aged Out No longer eligi ble based on patient's age to complete this topic MENINGOCOCCAL (Group B) VACC INE SHARED DECISION-MAKING Aged Out No longer eligibl e based on patient's age to complete this topic MENINGOCOCCAL GROUPS A/C/Y/W VACCINE Aged Out No longer eligible b ased on patient's age to complete this topic Insurance MEDICARE ADV HMO & PPO * Guarantor: BALTAZAR MCLEAN Account Type Relation to Patient Date of Phone Billing Address Personal/Family [address] [place] [id number] SELF PAY NO INSURANCE Member Subscriber Plan / Payer (Ef fective for All Dates) Name:Baltazar Mclean Member ID:Not on file Relation to Subscriber:Not on file Name:BALTAZAR MCLEAN Subscriber ID:Not on file Address: [address] [place] [address] Payer ID:Not on file Group ID:Not on file Type:Self Pay Address: [place], [place] * Guarantor: BALTAZAR MCLEAN Account Type Relation to Patient Date of Phone Billing Address Personal/Family [address] [place] [address] SELF PAY NO INSURANCE Member Subscriber Plan / Payer (Ef fective for All Dates) Name:Baltazar Mclean Member ID:Not on file Relation to Subscriber:Not on file Name:BALTAZAR MCLEAN Subscriber ID:Not on file Address: [address] [place] [address] Payer ID:Not on file Group ID:Not on file Type:Self Pay Address: [place], [place] * Guarantor: BALTAZAR MCLEAN Account Type Relation to Patient Date of Phone Billing Address Personal/Family [address] [place] [address] SELF PAY NO INSURANCE Member Subscriber Plan / Payer (Ef fective 1989-Present) Name:Baltazar Mclean Member ID:Not on file Relation to Subscriber:Not on file Name:BALTAZAR MCLEAN Subscriber ID:Not on file Address: [address] [place] [address] Payer ID:Not on file Group ID:Not on file Type:Self Pay Address: [place], [place] * Guarantor: BALTAZAR MCLEAN Account Type Relation to Patient Date of Phone Billing Address Personal/Family [address] [place] [address] [employer] SELF PAY NO INSURANCE Member Subscriber Plan / Payer (Ef fective for All Dates) Name:Baltazar Mclean Member ID:Not on file Relation to Subscriber:Not on file Name:BALTAZAR MCLEAN Subscriber ID:Not on file Address: [address] [place] [address] Payer ID:Not on file Group ID:Not on file Type:Self Pay Address: [place], [place] * Guarantor: BALTAZAR MCLEAN Account Type Relation to Patient Date of Phone Billing Address Personal/Family [address] [place] [address] [employer] SELF PAY NO INSURANCE Member Subscriber Plan / Payer (Ef fective for All Dates) Name:Baltazar Mclean Member ID:Not on file Relation to Subscriber:Not on file Name:BALTAZAR MCLEAN Subscriber ID:Not on file Address: [address] [place] [address] Payer ID:Not on file Group ID:Not on file Type:Self Pay Address: [place], [place] * Guarantor: BALTAZAR MCLEAN Account Type Relation to Patient Date of Phone Billing Address Personal/Family [address] [place] [address] [employer] SELF PAY NO INSURANCE Member Subscriber Plan / Payer (Ef fective for All Dates) Name:Baltazar Mclean Member ID:Not on file Relation to Subscriber:Not on file Name:BALTAZAR MCLEAN Subscriber ID:Not on file Address: [address] [place] [id number] Payer ID:Not on file Group ID:Not on file Type:Self Pay Address: [place], [place] Care Teams Airplane Tube Builder Relationship Specialty Start Date End Date José Miguel Fan MD [address] [place] [address] PCP - General 02/10/10
--- OUTSIDE RECORDS SUMMARY | 2024-12-16 12:52 | XMS_ITS | Continuity of Care Document ---
Author Organization [facility] Address [address] [place] [address] Phone Care Team Providers [employer] Name Role Phone José Miguel Garnett MD Unavailable Unavailable Allergies, Adverse Reactions, Alerts Substance Reaction Status Criticality ADELA Inhibitors Angioedema Active No Informatio n Medications Medication Instructions Dosage Effective Dates (start - stop) Status Comments amlodipine 2.5 mg tablet 1 po qd - Active NO FURTHER REFILLS UNTIL SEES DR. GARNETT atenolol 50 mg tablet 1 PO QD - Active NO FURTHER REFILLS UNTIL SEES DR. GARNETT Vitamin B-12 1,000 mcg tablet take 1 by Oral route once daily - Active Viagra 100 mg tablet 1 PO QD DIRECTE - Active ADULT LOW STRENGTH 81MG TABS 1 QD-daily - Active Advance Directives Directive Yes / No Effective Date File Name No Information Encounters Encounter Description Practice Location Reason(s) For Visit Diagnoses Date Provider Providers Copied on Encounter [facility], [address], [place], [place], [address] , tel: [phone] [facility] No Information 7 Meng Valdez. [address], [address], [place], [place], [address], [place]. [phone] [facility], [address], [place], [place], [address] , tel: [phone] [facility] No Information 6 Meng Valdez. [address], [address], [place], [place], [address], [place]. tel:[phone] [facility], [address], [place], [place], [address] , tel: [phone] [facility] No Information 6 Meng Valdez. [address], [address], [place], [place], [address], [place]. tel:[phone] [facility], [address], [place], [place], [address] , [place] tel: [phone] [facility] No Information 0 5 Meng Valdez. [address], [address], [place], [place], [address], [place]. tel:[phone] [facility], [address], [place], [place], [address] , tel: [phone] [facility] Unspecified essential hypertensionStric ture and stenosis of esophagusImpaired fasting glucoseImpotence of organic originPneumonia Vaccine 5 Meng Valdez[address], [address], [place], [place], [address], [place]. tel:[phone] Referring Provider: José Miguel May, [address] [address], [place], [address] . tel:[phone] [facility], [address], [place], [place], [address] , tel: [phone] [facility] History of fall/At Risk For FallingScreening for unspecified conditionUnspecif ied problems with limbs and other problemsStricture and stenosis of esophagusHTNIMPAI RED FASTING GLUCOSEErectile DysfunctionStrict ure and stenosis of esophagus 4 M[address], [address], [place], [place], [address], [place]. tel:[phone] Referring Provider: José Miguel May, [address], [place], [address] . tel:[phone] [facility], [address], [place], [place], [address] , [place] tel: [phone] [facility] Unspecified essential hypertensionIMPAI RED FASTING GLUCOSEOther Malaise And FatigueEsophageal spasmImpotence of organic originOther and unspecified hyperlipidemia 2 Meng Valdez. [address], [address], [place], [place], [address], [place]. tel:[phone] Referring Provider: José Miguel May, [address], [place], [address] . tel:[phone] [facility], [address], [place], [place], [address] , [place] tel: [phone] [facility] IMPAIRED FASTING GLUCOSE 1 M[address] Val[address], [address], [place], [place], [address], [place]. tel:[phone] Referring Provider: José Miguel May, [address], [place], [address] . tel:[phone] [facility], [address], [place], [place], [address] , [place] tel: [phone] [facility] No Information 1 Meng Valdez[address], [address], [place], [place], [address], [place]. [phone] [facility], [address], [place], [place], [address] , [place] tel: [phone] [facility] ESOPHAGEAL REFLUXLONG-TERM USE MEDS NECRT BUNDLE BRANCH BLOCKSCRN MALIG NEOP-PROSTATEIMPA IRED FASTING GLUCOSEHYPERTENSI ON NOSSCREEN MALIG NEOP-COLONHYPERLI PIDEMIA NEC/NOS [address] M[address], [address], [place], [place], [address], [place]. [phone] [facility], [address], [place], [place], [address] , [place] tel: [phone] [facility] UNILAT INGUINAL HERNIA 0 Meng Valdez. [address], [address], [place], [place], [address], [place]. tel:[phone] [facility], [address], [place], [place], [address] , tel: [phone] [facility] No Information 0 0 Meng Valdez. [address], [address], [place], [place], [address], [place]. tel: [phone] [facility], [address], [place], [place], [address] , tel:[phone] [facility] VACCIN FOR INFLUENZADYSPHAGI A NOS 9 Meng Valdez. [address], [address], [place], [place], [address], [place]. tel: [phone] [facility], [address], [place], [place], [address] , tel:[phone] [facility] MALAISE AND FATIGUE NEC 9 Meng Valdez. [address], [address], [place], [place], [address], [place]. tel: [phone] [facility], [address], [place], [place], [address] , [place] tel:[phone] [facility] IMPOTENCE, ORGANIC ORIGN 9 [facility]. [address], [place], [address], [place]. [facility], [address], [place], [place], [address] , tel:[phone] [facility] BPH W/O URINARY OBS/LUTS 8 Meng Valdez. [address], [address], [place], [place], [address], [place]. tel: [phone] [facility], [address], [place], [place], [address] , [place] tel:[phone] [facility] SCREEN LIPOID DISORDERS 1 Meng Valdez. [address], [address], [place], [place], [address], . tel: [phone] [facility], [address], [place], [place], [address] , [place] tel:[phone] [facility] FAM HX-ISCHEM HEART DIS 2200 0 Meng José Miguel. [address], [address], [place], [place], [address], [place]. tel:[phone] Family History Family Member Type Diagnosis Age At Onset Family h/o Problem (finding) ISCHEMIC HEART DISEASE( IHD) Immunizations Vaccine Date Status Comments Pneumococcal conjugate PCV 15 administere d Source: New Immunization Record 17414 - Influenza administered Source: [place] Unspecified 22260 - Influenza administered Source: [place] Unspecified Payers Payer name Insurance type Covered democrat ID Authoriza tion(s) MEDICARE [id number] AAR MDCR SUPPLEMENT ONLY [place] [id number] MEDICARE MB [id number] [facility] MDCR SUPPLEMENT ONLY CI [id number] Social History Type Description Quantity Date Captured Comments Alcohol Use Details Unknown Caffeine Use Details Unknown Tobacco Use Status No Information Smoking Status No Information Sex Male Chief Complaint And Reason For Visit No [...]
[2024-12-16 13:24] LABS: Basophils Percent Auto 0.6 % (0.2-1.2); Eosinophils Absolute Auto 0.2 K/mm3 (0-0.3); Eosinophils Percent Auto 3.3 % (0-4.4); Hematocrit 46.3 % (42.0-52.0); Hemoglobin 15.5 g/dL (14.0-18.0); Immature Granulocyte Absolute 0.02 K/mm3 (0.00-0.031); Immature Granulocyte Percent A 0.4 % (0-0.5); Lymphocytes Absolute Auto 1.46 K/mm3 (0.9-3.2); Lymphocytes Percent Auto 28.3 % (18.3-44.2); Mean Corpuscular HGB Conc 33.5 g/dl (32-36); Mean Corpuscular Hemoglobin 33.5 pg (26-34); Mean Corpuscular Volume 100.2 fl (80-100); Monocytes Absolute Auto 0.8 K/mm3 (0.1-0.6); Monocytes Percent Auto 16.1 % (2.6-8.5); Neutrophils Absolute Auto 2.7 K/mm3 (1.3-6.7); Neutrophils Percent Auto 51.3 % (45.5-73.1); Platelet Count Result 231 k/mm3 (150-375); Red Blood Count 4.62 M/mm3 (4.6-6.20); Red Cell Distribution Width 12.4 % (11.5-14.5); White Blood Count 5.2 K/mm3 (4.5-10.0)
[2024-12-16 16:37] LABS: Alanine Aminotransferase 33 U/L (6-50); Albumin Level 4.6 g/dL (3.5-5.1); Alkaline Phosphatase 80 U/L (38-126); Anion Gap 9 mmol/L (4-12); Aspartate Amino Transferase 61 U/L (17-59); Bilirubin,Total 0.7 mg/dL (0.2-1.3); Blood Urea Nitrogen 11 mg/dL (9-20); Calcium 9.6 mg/dL (8.4-10.2); Carbon Dioxide 26 mmol/L (22-30); Chloride 104 mmol/L (98-107); Estimated Glomerular Filt Rate > 60; Glucose 104 mg/dL (65-110); Potassium 4.3 mmol/L (3.4-5.0); Sodium 139 mmol/L (137-145); Total Protein 7.7 g/dL (6.3-8.2)
[2024-12-16 17:41] LABS: Folic Acid 10.4 ng/mL (2.76->20); Vitamin B12 < 159.0 pg/mL (239-931)
== END 2024-12-16 11:15 | disposition home or self-care (01) ==
LOC: ANHGOSHLAB 11:16
PROVIDERS: PCP Internal Medicine; Visit Provider Nurse Practitioner
DX: R11.10 Vomiting, unspecified (principal); R53.83 Other fatigue; I10 Essential (primary) hypertension; R21 Rash and other nonspecific skin eruption
CPT/HCPCS: 36415; 80053; 82607; 82746; 84443; 85025